=== PATIENT | female | born 1970 | race African-American/Black ===

== ENCOUNTER 2016-06-08 15:27 | Emergency (ER) | payer OTHER ==
[~2016-06-08 15:27] MED LIST: ALBUTEROL17 GM INH; ALL DAY ALLERGY10 M2 PO; ASCORBIC ACID500 M2 PO; AZITHROMYCIN250 MG PO; CIPRO PO; COLACE PO; FERROUS GLUCON324 MG PO; FLAGYL250 M1 PO; FLINTSTONE1 TAB.CHE4 PO; FLONASE 0.05% N16 G1; GUAIFENESIN LA600 M1 PO; HYDRALAZINE HCL25 MG PO; HYDRALAZINE HCL50 MG PO; HYDROCHLOROTHIA25 MG PO; IRON SULFATE; LISINOPRIL; LISINOPRIL20 MG PO; PERCOCET 7.5/321 TAB PO; PREDNISONE PO; SENNA-S TABLET1 EAC1 PO; VITAMIN C500 M7 PO; ZITHROMAX500 MG PO; ZYRTEC PO; ZYRTEC10 M2 PO
== END 2016-06-08 16:06 | disposition home or self-care (01) ==
LOC: CFTX 15:27
DX: K04.7 Periapical abscess without sinus (principal)
CPT/HCPCS: 96372; 99283

== ENCOUNTER 2016-07-04 05:23 | Emergency (ER) | payer OTHER ==
[2016-07-04 06:41] LABS: INFLUENZA A NEG (NEG)
[2016-07-04 06:42] LABS: INFLUENZA B NEG (NEG)
== END 2016-07-04 07:25 | disposition home or self-care (01) ==
LOC: CED 05:23
PROVIDERS: Emergency Medicine
DX: J02.0 Streptococcal pharyngitis (principal); H92.03 Otalgia, bilateral; K21.9 Gastro-esophageal reflux disease without esophagitis; I10 Essential (primary) hypertension
CPT/HCPCS: 87804; 87880; 99283

== ENCOUNTER 2016-08-22 17:58 | Emergency (ER) | payer OTHER | END 2016-08-22 19:14 | disposition home or self-care (01) | LOC: CED 17:58 | DX: E52 Niacin deficiency [pellagra] (principal); I10 Essential (primary) hypertension; J45.909 Unspecified asthma, uncomplicated; K21.9 Gastro-esophageal reflux disease without esophagitis; E66.01 Morbid (severe) obesity due to excess calories; Z90.89 Acquired absence of other organs; Z88.1 Allergy status to other antibiotic agents; Z88.0 Allergy status to penicillin | CPT/HCPCS: 99283 ==

== ENCOUNTER 2016-12-08 23:58 | Emergency (ER) | payer OTHER ==
[~2016-12-08] VITALS: Ht 160 cm; Wt 127.0 kg
--- NOTE | ~2016-12-08 | CR72 ---
[facility] A Service of [facility] & [facility] RADIOLOGY TEXT RESULTS PATIENT: FRANCISCA MOTA LOCATION: [facility] : 68 UNIT #: [id number] AGE: [address]: Fabiola Bermudez MD SEX: F ORDER DR: [id number] [facility] [address] [place], [place] [address] [id number] MR#: [id number] Acc #: [id number] NAME: FRANCISCA MOTA : 1970 SEX: F STUDY DATE/TIME: 12/09/2016 1:48 UNIT: [facility] ROOM: STUDY DESCRIPTION: CR Chest Single View Portable Attending Physician: Fabiola Bermudez M.D. Ordering Physician: Cristhian Archibald M.D. Primary Care Physician: Primary Care Physician No MEDICAL IMAGING REPORT This report is preliminary unless electronic signature is present EXAM Chest x-ray 12/09/2016 HISTORY 45-year-old female in the ED complaining of 1-day history of chest pain, night sweats and nausea. TECHNIQUE AP portable chest x-ray. FINDINGS Heart size and pulmonary vascularity are within normal limits. The lungs are expanded and clear. No visible pulmonary infiltrate or pleural effusion. Thoracolumbar spinal curvature. No change since 10/09/2016. IMPRESSION No active disease. No change since 10/09/2016. Dictated by... Bharathi Sahni M.D. THIS IS AN ELECTRONICALLY VERIFIED REPORT Bharathi Sahni M.D. at 12/10/2016 2:44 AM ROSALINDA/louise TD: 12/09/2016 13:05 JOB #: [id number] MEDICAL IMAGING REPORT Page 1 of 1 COPY
--- NOTE | ~2016-12-08 | EKG ---
PATIENT: FRANCISCA MOTA UNIT #: [id number] Ventricular Rate: 94 BPM Atrial Rate: 94 BPM P-R Interval: 160 ms QRS Duration: 82 ms Q-T Interval: 352 ms QTC Calculation(Bezet): 440 ms P May: 27 degrees Calculated R May: 10 degrees Calculated T May: 76 degrees Diagnosis Line: Normal sinus rhythm Diagnosis Line: Minimal voltage criteria for LVH, may be normal Diagnosis Line: variant Diagnosis Line: Nonspecific T wave abnormality Diagnosis Line: Abnormal ECG Diagnosis Line: When compared with ECG of 02-NOV-2015 16:05, Diagnosis Line: T wave inversion less evident in Lateral leads Diagnosis Line: Confirmed by NAZIA METCALF MD ([id number]) on Diagnosis Line: 12/10/2016 12:30:31 PM INTERPRETING MD: TEA TRINH
[2016-12-09 01:32] LABS: BASOPHIL% 0.4 % (0-2.5); DIFF IND YES; EOSINOPHIL# 0.4 X10e3 (0-0.7); EOSINOPHIL% 3.1 % (0.0-7.0); HEMATOCRIT 31.9 % (35.0-45.0); HEMOGLOBIN 9.8 gm/dL (12.0-16.0); LYMPHOCYTE# 2.4 X10e3 (1.0-3.5); LYMPHOCYTE% 20.5 % (17.0-45.0); MEAN CORPUSCULAR HEMOGLOBIN 20.9 PG (28-34); MEAN CORPUSCULAR HGB CONC 30.8 g/dL (30-36); MEAN PLATELET VOLUME 8.5 FL (6.5-11.5); MONOCYTE# 0.5 X10e3 (0-1.0); MONOCYTE% 4.6 % (3.0-12.0); NEUTROPHIL# 8.2 X10e3 (1.5-7.1); NEUTROPHIL% 71.4 % (40-75); PLATELET COUNT 506 X10e3 (140-420); WHITE BLOOD COUNT 11.4 X10e3 (4.0-10.5)
[2016-12-09 02:04] LABS: ALBUMIN SERUM 3.2 g/dL (3.5-5.0); BILIRUBIN, DIRECT 0.1 mg/dL (0.0-0.2); BILIRUBIN,TOTAL 0.1 mg/dL (0.2-2.0); BUN/CREATININE RATIO 8.63; CALCIUM SERUM 8.9 mg/dL (8.4-10.2); CREATININE SERUM 2.2 mg/dL (0.6-1.4); GLOM FILT RATE Estimated 30.2 mL/min (>60); POTASSIUM 3.4 mmol/L (3.5-5.1); PROTEIN TOTAL SERUM 7.7 g/dL (6.0-8.3)
[2016-12-09 02:16] LABS: POC - CKMB <1.0 ng/mL (0.0-7.9); POC - TROPONIN <0.05 ng/mL (<=0.05)
[2016-12-09 02:20] LABS: PLATELET ESTIMATE INCREASED (NORMAL)
[2016-12-09 02:21] LABS: HYPOCHROMIA SL
[2016-12-09 03:42] LABS: POC - CKMB <1.0 ng/mL (0.0-7.9); POC - TROPONIN <0.05 ng/mL (<=0.05)
== END 2016-12-09 04:40 | disposition short-term general hospital (02) ==
LOC: CED 23:58
PROVIDERS: Emergency Medicine
DX: R07.89 Other chest pain (principal); I10 Essential (primary) hypertension; J45.909 Unspecified asthma, uncomplicated; K21.9 Gastro-esophageal reflux disease without esophagitis; Z98.51 Tubal ligation status; Z88.0 Allergy status to penicillin
CPT/HCPCS: 36415; 71010; 80048; 80076; 82553; 84484; 85025; 93005; 99285